=== PATIENT | female | born 1980 | race Caucasian/White ===

== ENCOUNTER 2018-04-02 09:34 | Inpatient (IN) | payer OTHER ==
[~2018-04-02] VITALS: Ht 160 cm; Wt 3.6 kg
[2018-04-02] MEDS ORDERED: OMEPRAZOLE10 MG PO (10:31)
[2018-04-14] MEDS ORDERED: PRENA1 CHEW TA1.4 MG PO (07:58)
[2018-04-14] MEDS ORDERED: ZANTAC300 MG PO (07:59)
== END 2018-04-17 12:59 | DRG 766 ==
LOC: LDR 04-14 07:51 → SURG-SUITE 04-14 07:51 → O/R 04-14 13:13 → SURG-SUITE 04-14 13:19 → LDR 04-22 11:00 → SURH 04-22 11:00 → LDR 04-22 11:00
PROVIDERS: Obstetrics & Gynecology
PROC: 4A1HXCZ Monitoring of Products of Conception, Cardiac Rate, External Approach (ICD-10-PCS; 2018-04-14)
PROC: 10D00Z1 Extraction of Products of Conception, Low, Open Approach (ICD-10-PCS; principal; 2018-04-14 11:15)
DX: O34.211 Maternal care for low transverse scar from previous cesarean delivery (principal); Z3A.38 38 weeks gestation of pregnancy; Z37.0 Single live birth